=== PATIENT | female | born 1975 | race Caucasian/White ===

== ENCOUNTER 2017-01-04 10:49 | Day surgery (SDC) | payer OTHER ==
[2017-01-01 12:15] VITALS: BMI 23.0
[~2017-01-04 10:49] MED LIST: LEVOFLOXACIN 500 MG PREMIX BAG IVPB ONE
[2017-01-04] MEDS ORDERED: MIDAZOLAM HCL 2 MG/2 ML SINGLE DOSE VIAL ONE ×2 (12:36→12:42)
[2017-01-04] MEDS ORDERED: LEVOFLOXACIN 500 MG PREMIX BAG IVPB ONE (12:37)
[2017-01-04] MEDS ORDERED: KETOROLAC TROMETHAMINE 30 MG/1 ML VIAL ONE (13:00)
[2017-01-04] MEDS ORDERED: PROMETHAZINE HCL 25 MG/1 ML VIAL IVPUSH PRN (13:01)
[2017-01-04] MEDS ORDERED: ONDANSETRON 4 MG/2 ML VIAL IVPUSH PRN (13:01)
[2017-01-04] MEDS ORDERED: oxyCODONE HCL 5 MG TABLET PO PRN (13:01)
[2017-01-04] MEDS ORDERED: LACTATED RINGERS SOLUTION 1,000 ML IV SCH (13:15)
[2017-01-04 14:12] VITALS: TEMP 97.8
[2017-01-04] MEDS ORDERED: ONDANSETRON 4 MG/2 ML VIAL ONE (14:37)
--- NOTE | 2017-01-04 16:46 | OP ---
Operative Note - Note: Operative Date: 01/04/17 Pre-Operative Diagnosis: right renal stones Operation: right eswl Post-Operative Diagnosis: Same as Pre-op Surgeon: Vipul Laws Anesthesia: General
[2017-01-04 17:51] VITALS: BP 128/80; PULSE 76
--- NOTE | 2017-01-05 14:56 | OP ---
DATE OF OPERATION: 01/04/2017 PREOPERATIVE DIAGNOSIS: Right renal stones. POSTOPERATIVE DIAGNOSIS: Right renal stones. PROCEDURE: Right extracorporeal shock wave lithotripsy. ATTENDING: Uma Mooney MD ANESTHESIA: General. DESCRIPTION OF OPERATION: The patient was brought in the operating room, placed in supine position on the operating room table. Ultrasonography and fluoroscopy were performed. Two stones, each measuring 3 mm, were noted in the right mid- and right lower poles. General anesthesia was then administered. Intravenous antibiotics were also administered. Shock wave lithotripsy was then started; 1500 impulses at 17 joules of power were administered to each stone with excellent fragmentation under real-time ultrasonography and fluoroscopy. No complications were noted. The disposition of the patient was to recovery room. UMA MOONEY M.D. [id number]
== END 2017-01-04 17:51 | disposition home or self-care (01) ==
LOC: JASU-SURG 10:49
PROVIDERS: ATTEND Urology
PROC: 0TF3XZZ Fragmentation in Right Kidney Pelvis, External Approach (ICD-10-PCS; principal; 2017-01-04 12:30)
DX: N20.0 Calculus of kidney (principal)
CPT/HCPCS: 84703; 94760

== ENCOUNTER 2017-02-01 12:28 | Day surgery (SDC) | payer OTHER ==
[2017-01-29 11:20] VITALS: BMI 23.0
[2017-02-01] MEDS ORDERED: LEVOFLOXACIN 500 MG PREMIX BAG IVPB ONE (14:00)
[2017-02-01] MEDS ORDERED: MIDAZOLAM HCL 2 MG/2 ML SINGLE DOSE VIAL ONE (14:07)
[2017-02-01] MEDS ORDERED: ONDANSETRON 4 MG/2 ML VIAL IVPUSH PRN (14:28)
[2017-02-01] MEDS ORDERED: oxyCODONE HCL 5 MG TABLET PO PRN (14:28)
[2017-02-01] MEDS ORDERED: LACTATED RINGERS SOLUTION 1,000 ML IV SCH (14:30)
--- NOTE | 2017-02-01 14:37 | OP ---
Operative Note - Note: Operative Date: 02/01/17 Pre-Operative Diagnosis: left renal stones Operation: left eswl Findings: one cm stone received 3000 impulses at 18 joules of power and fragmented well; second 0.5 cm stone requires follow-up eswl Post-Operative Diagnosis: Same as Pre-op Surgeon: Vipul Laws Anesthesia: Fractional
[2017-02-01 15:02] VITALS: TEMP 98.4
[2017-02-01 17:32] VITALS: BP 120/74; PULSE 85
--- NOTE | 2017-02-02 10:18 | OP ---
DATE OF OPERATION: 02/01/2017 PREOPERATIVE DIAGNOSIS: Left renal stones. POSTOPERATIVE DIAGNOSIS: Left renal stones. PROCEDURE: Left extracorporeal shock wave lithotripsy. ATTENDING: Uma Mooney MD ANESTHESIA: Fractional. DESCRIPTION OF OPERATION: Patient was brought in the operating room, placed in supine position on the operating room table. Ultrasonography and fluoroscopy were performed. A 1-cm left lower pole stone and 5-mm left mid-pole stone were identified. It was decided that the shock wave lithotripsy would focus on the 1-cm stone in order to maximize the breakage of a large stone. Fractional anesthesia was administered, as were antibiotics. Extracorporeal shock wave lithotripsy was then started; 3000 impulses at 18 joules of power were administered to the stone with excellent fragmentation of the stone noted. No complications were noted. The disposition of the patient was to recovery room. UMA MOONEY M.D. [id number]
== END 2017-02-01 16:35 | disposition home or self-care (01) ==
LOC: JASU-SURG 12:28
PROVIDERS: ATTEND Urology
PROC: 0TF4XZZ Fragmentation in Left Kidney Pelvis, External Approach (ICD-10-PCS; principal; 2017-02-01 14:45)
DX: N20.0 Calculus of kidney (principal)
CPT/HCPCS: 84703; 94760

== ENCOUNTER 2017-05-22 01:57 | Emergency (ER) | payer OTHER ==
[2017-05-22 02:03] VITALS: BP 123/94; PULSE 84; TEMP 98.5; BMI 25.0
--- NOTE | 2017-05-22 02:25 | PDOC ---
History of Present Illness - General Chief Complaint: Itching Stated Complaint: ITCHING Time Seen by Provider: 05/22/17 02:11 - History of Present Illness Initial Comments: This otherwise healthy 41-year-old woman presents with a few hour history of pruritic rash of her body. This rash began soon after patient went to bed and came in contact with bed linens just washed with a new detergent. Patient's son also had similar experience this evening. Patient herself has not had any new medication or food ingestion. She denies lip/tongue swelling or difficulty swallowing/breathing. No history of ALLERGY either by contact or ingestion. Patient has not taken any antihistamine or other medication since development of the rash. Past History - Past Medical History Allergies/Adverse Reactions: Allergies Allergy/AdvReac Type Severity Reaction Status Date / Time No Known Allergies Allergy Verified 02/01/17 12:51 Home Medications: Ambulatory Orders NK [No Known Home Medication] 01/01/17 Anemia: No Asthma: No Cancer: No Cardiac Disorders: No CVA: No COPD: No CHF: No Dementia: No Diabetes: No GI Disorders: No (ACID REFLUX) Disorders: No HTN: No Hypercholesterolemia: No Liver Disease: No Seizures: No Thyroid Disease: No - Suicide/Smoking/Psychosocial Hx Smoking History: Never smoked Hx Alcohol Use: No Drug/Substance Use Hx: No Substance Use Type: None Hx Substance Use Treatment: No Review of Systems - Review of Systems Able to Perform ROS?: Yes Comments:: 12 point review of systems is negative except for what is noted in the history of present illness *Physical Exam - Vital Signs Last Vital Signs Temp Pulse Resp BP Pulse Ox 98.5 F 84 16 123/94 100 05/22/17 02:00 05/22/17 02:00 05/22/17 02:00 05/22/17 02:00 05/22/17 02:00 - Physical Exam Comments: GENERAL: Adult female, alert and oriented 3, in no acute distress HEAD: Normal with no signs of trauma. EYES: PERRLA, EOMI, sclera anicteric, conjunctiva clear. ENT: No lip/tongue/uvular edema Ears normal, nares patent, oropharynx clear without exudates. Moist mucous membranes. NECK: Normal range of motion, supple without lymphadenopathy, JVD, or masses. LUNGS: Breath sounds equal, clear to auscultation bilaterally. No wheezes, and no crackles. HEART:Regular rate and rhythm, normal S1 and S2 without murmur, rub or gallop. ABDOMEN:.normal bowel sounds No guarding,tenderness or rebound.No masses No distention. EXTREMITIES: Normal range of motion, no edema. No clubbing or cyanosis. No erythema, or tenderness. NEUROLOGICAL: Cranial nerves II through XII grossly intact. Normal speech. No focal neurological deficits. MUSCULOSKELETAL: Back non-tender to palpation, no CVA tenderness SKIN: Fine, erythematous maculopapular rash of neck, anterior chest, back, abdomen and extremities Progress Note - Progress Note Progress Note: This otherwise healthy 41-year-old woman presents with urticaria after contact with linens washed in new detergent today. No upper airway edema or symptomatic swallowing/breathing difficulties. Antihistamine was recommended and patient states that she would prefer to take loratadine which she has at home. Patient will be discharged with instructions to take her own loratadine when she arrives home. She should return to the ER immediately if she develops difficulty swallowing/breathing or has new onset of lip or tongue swelling. She follow-up with her own doctor within the next 3-4 days *DC/Admit/Observation/Transfer Diagnosis at time of Disposition: Urticaria - Discharge Dispostion Disposition: HOME Condition at time of disposition: Stable - Referrals - Patient Instructions Printed Discharge Instructions: DI for Hives Additional Instructions: Claritin as needed for itching/rash Avoid use of new detergent that was used earlier today Return if difficulty swallowing/breathing occurs Follow-up with your general doctor within the next 3-4 days - Post Discharge Activity
== END 2017-05-22 02:36 | disposition home or self-care (01) ==
LOC: FER 01:57
DX: L50.9 Urticaria, unspecified (principal)
CPT/HCPCS: 99281-25

== ENCOUNTER 2018-02-28 10:33 | Day surgery (SDC) | payer OTHER ==
[2018-02-24 18:38] VITALS: BMI 23.6
[2018-02-28] MEDS ORDERED: KETOROLAC TROMETHAMINE 30 MG/1 ML VIAL ONE (13:04)
[2018-02-28] MEDS ORDERED: PROPOFOL 20 ML ONE (13:04)
[2018-02-28] MEDS ORDERED: MIDAZOLAM HCL 2 MG/2 ML SINGLE DOSE VIAL ONE (13:05)
[2018-02-28] MEDS ORDERED: DEXAMETHASONE SOD PHOSPHATE 4 MG/1 ML VIAL ONE (13:10)
[2018-02-28] MEDS ORDERED: oxyCODONE HCL 5 MG TABLET PO PRN (13:38)
[2018-02-28] MEDS ORDERED: ONDANSETRON 4 MG/2 ML VIAL IVPUSH PRN (13:38)
[2018-02-28] MEDS ORDERED: ACETAMINOPHEN 500 MG TABLET (FP) PO PRN (13:38)
[2018-02-28] MEDS ORDERED: LACTATED RINGERS SOLUTION 1,000 ML IV SCH (13:45)
--- NOTE | 2018-02-28 13:46 | OP ---
Operative Note - Note: Operative Date: 02/28/18 Pre-Operative Diagnosis: Left renal stone Operation: Lefr ESWL Findings: 5 mm lower pole renal stone Surgeon: Vipul Laws Anesthesia: Fractional Estimated Blood Loss (mls): 0 Drains, Volume Out (mls): 0
[2018-02-28 14:58] VITALS: BP 138/81; PULSE 88
[2018-02-28 18:03] VITALS: TEMP 98.4
--- NOTE | 2018-02-28 22:12 | OP ---
DATE OF OPERATION: 02/28/2018 PREOPERATIVE DIAGNOSIS: Left renal stone. POSTOPERATIVE DIAGNOSIS: Left renal stone. PROCEDURE: Left extracorporeal shock wave lithotripsy. ATTENDING: Uma Mooney MD ANESTHESIA: Fractional. DESCRIPTION OF OPERATION: The patient was brought in the operating room and placed in supine position on the operating room table. Ultrasonography and fluoroscopy were performed. A 5-mm left lower-pole stone was identified. Anesthesia and preoperative antibiotics were then administered; 2500 impulses at 17 joules of power were administered to the stone with excellent fragmentation of the stone noted under real-time ultrasonography and fluoroscopy. Patient tolerated the procedure very well. UMA MOONEY M.D. /[id number]
== END 2018-02-28 16:30 | disposition home or self-care (01) ==
LOC: JASU-SURG 10:33
PROVIDERS: ATTEND Urology
PROC: 0TF4XZZ Fragmentation in Left Kidney Pelvis, External Approach (ICD-10-PCS; principal; 2018-02-28 13:15)
DX: N20.0 Calculus of kidney (principal)
CPT/HCPCS: 84703; 94760

== ENCOUNTER 2020-03-21 01:02 | Emergency (ER) | payer OTHER ==
[2020-03-21 01:10] VITALS: BP 119/78; PULSE 96; TEMP 100.4; BMI 25.6
[2020-03-21] MEDS ORDERED: ACETAMINOPHEN 500 MG TABLET (FP) ONE (01:39)
== END 2020-03-21 01:49 | disposition home or self-care (01) ==
LOC: FER 01:02
DX: Z11.59 Encounter for screening for other viral diseases (principal)
CPT/HCPCS: 87804; 99283-25; C9803; U0003

== ENCOUNTER 2021-02-11 23:18 | Emergency (ER) | payer OTHER ==
[2021-02-11 23:26] VITALS: BP 145/94; PULSE 83; TEMP 98.9; BMI 24.0
[2021-02-11 23:38] LABS: EPITHELIAL CELLS FEW /hpf
[2021-02-11 23:40] LABS: HCG,QUALITATIVE URINE Negative
[2021-02-12] MEDS ORDERED: SODIUM CHLORIDE 1,000 ML IV STA (00:07)
[2021-02-12] MEDS ORDERED: KETOROLAC TROMETHAMINE 30 MG/1 ML VIAL IVPUSH ONE (00:07)
[2021-02-12] MEDS ORDERED: KETOROLAC TROMETHAMINE 30 MG/1 ML VIAL ONE (00:14)
== END 2021-02-12 01:25 | disposition home or self-care (01) ==
LOC: FER 23:18
PROC: 3E0333Z Introduction of Anti-inflammatory into Peripheral Vein, Percutaneous Approach (ICD-10-PCS; principal; 2021-02-11)
PROC: 3E033GC Introduction of Other Therapeutic Substance into Peripheral Vein, Percutaneous Approach (ICD-10-PCS; 2021-02-11)
DX: R10.2 Pelvic and perineal pain (principal); D25.9 Leiomyoma of uterus, unspecified
CPT/HCPCS: 74176-TC; 81003; 81015; 84703; 87086; 99284-25

== ENCOUNTER 2021-09-10 07:52 | Emergency (ER) | payer OTHER ==
[2021-09-10 08:27] VITALS: BMI 24.9
[2021-09-10] MEDS ORDERED: SODIUM CHLORIDE 0.9% 500 ML INFUS.BAG IV ONE (09:43)
[2021-09-10] MEDS ORDERED: ACETAMINOPHEN 1000 MG/100 ML BAG IVPB ONE ×2 (09:43→12:51)
[2021-09-10] MEDS ORDERED: ONDANSETRON 4 MG/2 ML VIAL IVPUSH ONE (09:43)
[2021-09-10] MEDS ORDERED: ACETAMINOPHEN INJECTION 100 ML IVPB ONE (10:17)
[2021-09-10] MEDS ORDERED: ONDANSETRON 4 MG/2 ML VIAL ONE (10:17)
[2021-09-10 10:25] LABS: PH,URINE 6.5 (5.0-8.0); URINE APPEARANCE CLEAR; URINE BILIRUBIN NEGATIVE (NEGATIVE); URINE COLOR YELLOW; URINE GLUCOSE (UA) NEGATIVE (NEGATIVE); URINE KETONE NEGATIVE (NEGATIVE); URINE LEUK ESTERASE NEGATIVE (NEGATIVE); URINE NITRITE NEGATIVE (NEGATIVE); URINE PROTEIN NEGATIVE (NEGATIVE); URINE UROBILINOGEN 0.2 mg/dL (0.2-1.0)
[2021-09-10 11:17] LABS: BASO % 0.4 % (0-2.0); EOS % 0.8 % (0-4.5); HEMATOCRIT 47.8 % (32.4-45.2); HEMOGLOBIN 16.5 GM/dL (10.7-15.3); LYMPH % 13.3 % (8-40); MCH 29.4 pg (25.7-33.7); MCHC 34.6 g/dl (32.0-36.0); MEAN CELL VOLUME 84.9 fl (80-96); MEAN PLT VOLUME 7.5 fl (7.5-11.1); MONO % 4.5 % (3.8-10.2); PLATELET COUNT 213 10^3/uL (134-434); RBC 5.63 M/mm3 (3.60-5.2); RDW 12.8 % (11.6-15.6); WHITE BLOOD COUNT 13.9 K/mm3 (4.0-10.0)
[2021-09-10 11:43] LABS: ALBUMIN 4.1 g/dl (3.4-5.0); CALCIUM 9.4 mg/dL (8.5-10.1)
[2021-09-10 11:44] LABS: BLOOD UREA NITROGEN 15.1 mg/dL (7-18)
[2021-09-10 11:47] LABS: CREATININE 0.8 mg/dL (0.55-1.3)
[2021-09-10 11:48] LABS: TOT PROT 7.9 g/dl (6.4-8.2)
[2021-09-10 14:37] VITALS: BP 108/71; PULSE 87; TEMP 97.7
[2021-09-10] MEDS ORDERED: KETOROLAC TROMETHAMINE 30 MG/1 ML VIAL IVPUSH ONE (15:16)
[2021-09-10] MEDS ORDERED: KETOROLAC TROMETHAMINE 30 MG/1 ML VIAL ONE (15:42)
== END 2021-09-10 16:00 | disposition home or self-care (01) ==
LOC: JER 07:52
PROC: 3E033GC Introduction of Other Therapeutic Substance into Peripheral Vein, Percutaneous Approach (ICD-10-PCS; principal; 2021-09-10)
DX: D25.9 Leiomyoma of uterus, unspecified (principal)
CPT/HCPCS: 36415; 74177-TC; 76830-TC; 80053; 81003; 83690; 84703; 85025; 87086; 99285-25; Q9967

== ENCOUNTER 2023-07-23 04:34 | Day surgery (SDC) | payer OTHER ==
[2023-07-22 10:58] VITALS: BMI 26.5
[2023-07-23 13:53] VITALS: RESP 20
[2023-07-23 14:01] VITALS: BP 104/64; PULSE 73; TEMP 97.8
== END 2023-07-23 14:06 | disposition home or self-care (01) ==
LOC: JASU-ENDO 04:34
PROVIDERS: ATTEND Internal Medicine Gastroenterology
PROC: 0DJD8ZZ Inspection of Lower Intestinal Tract, Via Natural or Artificial Opening Endoscopic (ICD-10-PCS; principal; 2023-07-23 13:00)
DX: Z12.11 Encounter for screening for malignant neoplasm of colon (principal); K64.8 Other hemorrhoids; I10 Essential (primary) hypertension